=== PATIENT | male | born 1990 | race Caucasian/White ===

== ENCOUNTER 2024-10-15 12:47 | Emergency (ER) | payer SELFPAY ==
[2024-10-15 14:10] LABS: #Basophils 0.04 10x3/uL (0.0-0.2); #Eosinophils Less than 0.03 10x3/uL (0.0-0.7); #Monocytes 0.46 10x3/uL (0.11-0.59); #Neutrophils 3.26 10x3/uL (1.40-6.50); %Basophils 0.9 % (0.0-1.0); %Eosinophils 0.4 % (0.0-10.0); %Lymphocytes 17.0 % (21.0-51.0); %Monocytes 10.0 % (0.0-10.0); %Neutrophils 71.3 % (42.0-75.0); Hematocrit 39.4 % (42.0-52.0); Hemoglobin 12.9 g/dL (14.0-18.0); Mean Corpuscular Hemoglobin 30.4 pg (27.0-31.0); Mean Corpuscular Volume 92.7 fL (78.0-98.0); Platelet Count 176 10x3/uL (130-400); Red Blood Cell (RBC) Count 4.25 mill/uL (4.70-6.10); White Blood Cell (WBC) Count 4.58 10x3/uL (4.8-10.8)
[2024-10-15 14:31] LABS: ALT (SGPT) 14 U/L (Less than 45); AST (SGOT) 27 U/L (11-34); Albumin 4.1 g/dL (3.1-4.5); Alkaline Phosphatase 68 U/L (40-110); Anion Gap 14 mmol/L (10-20); BUN (Urea Nitrogen) 8 mg/dL (8.9-20.6); Bilirubin, Total 0.7 mg/dL (0.3-1.2); Calc. Creatinine Clearance 0 mL/min (70-130); Calcium 8.6 mg/dL (7.8-10.44); Carbon Dioxide 23 mmol/L (22-29); Chloride 108 mmol/L (98-107); Globulin 2.0 g/dL (2.4-3.5); Glucose 91 mg/dL (70-105); Potassium 3.8 mmol/L (3.5-5.1); Sodium 141 mmol/L (136-145)
[2024-10-15 14:52] LABS: Free T4 (Free Thyroxine) 1.16 ng/dL (0.70-1.48); Thyroid Stimulating Hormone 1.8342 uIU/mL (0.35-4.94)
== END 2024-10-15 15:12 | disposition home or self-care (01) ==
LOC: ERS 12:47
DX: E86.0 Dehydration (principal); Z55.6 Problems related to health literacy; Z87.891 Personal history of nicotine dependence
CPT/HCPCS: 36415; 80053; 84439; 84443; 85025; 93005; 96360